=== PATIENT | male | born 1960 | race Caucasian/White ===

== ENCOUNTER → 2018-05-23 | Outpatient (CLI) | payer MEDICARE ==
[~2018-05-23] MED LIST: ALPR-699 PO; ATR80PT PO; CLON-393 PO; DIC75 PO; FAM20 PO; IOPAMIDOL 76% 75 ML INFUS BTL 75 ML ONE; METO50TA PO; NITR0.3T6 SL; NO ROUTINE MEDS; NS(*) 0.9% 50 ML BAG 50 ML ONE; PRAS5TAB3 PO
--- NOTE | 2018-05-23 16:32 | RADIOLOGY IMAGING REPORT ---
FACILITY: [facility] - [place] PATIENT NAME: Edison Griggs : 1960 MR: [id number] V: [id number] EXAM DATE: ORDERING PHYSICIAN: ROSAMARIA TO TECHNOLOGIST: [place] [facility] [place] Gr[place] : 1960 Visit/Account:[id number] Date of Sevice: 05/23/2018 CT ANGIOGRAM HEAD W W/O CONTRA, CTA NECK/CAROTIDS W W/O CONTR Provided history: Left-sided arm numbness Additional pertinent history: none TECHNIQUE: A preliminary non-IV enhanced axial series was not obtained through the brain in this case. Overlapping thin spiral sections were obtained during a bolus of IV contrast from the aortic arch thr ough the cranial vertex. Reconstruction of the source data set includes multiplanar 2D in the sagitta l and coronal planes, and 3D coronal thin slab MIP series. [employer] Engineer images have been stored on PACS. Stenosis calculations are performed using the NASCET criteria (the diameter of the stenotic segment d ivided by the diameter of a normal distal segment of internal carotid artery, where suh are paralle l, then subtracted from 1). Contrast: 75 ml Isovue 370 One of the following dose optimization techniques was utilized in the performance of this exam: Autom ated exposure control; adjustment of the mA and/or kV according to the patient's size; or use of an i terative reconstruction technique. Specific details can be referenced in the facility's radiology C T exam operational policy. COMPARISON STUDIES: No relevant priors FINDINGS: Angiographic findings: Aortic arch and great vessels: Minor calcified plaque near the origin of the left subclavian withou t ostial stenosis.. Right CCA / ICA: Mild calcified plaque of the medial wall of the carotid bulb without focal stenosi s. Rest of the ascending segment, petrous segment and siphon are normal. Bifurcation normal.. Left CCA / ICA: There is a linear hypodense filling defect along the posterior wall of the upper co mmon carotid and carotid bulb difficult to explain away as artifact but I think a real finding. This either reflects adherent thrombus or plaque or possibly sequela of an older dissection but does not propagate beyond the bulb-internal ascending segment junction. Rest of the ascending cervical segmen t, petrous segment and siphon are normal. Bifurcation is normal. Vertebro-basilar: Negative. Right vertebral is dominant.. 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 There is mild-moderat e relative narrowing of the left M1 segment and there is decreased opacification of the left M3 and M 4 branches of questionable significance as this would not correlate with the clinical presentation of left-sided numbness. I see no filling defects.. MORELIA circulation: Negative. MCA circulation: Negative. LINEWORKER circulation: Negative. Other: none significant Additional non-angiographic findings: Brain: Volume is normal. No evidence of hemorrhage, though sensitivity is limited without a non-IV e nhanced series.. No masses. No significant white matter disease. No abnormal extra-axial fluid. N o enhancing lesions. Soft tissues of the neck: Negative Osseous structures of the neck: No significant degenerative changes. Upper chest: Negative IMPRESSION: 1. Linear and curvilinear filling defect along the posterior wall of the upper left common carotid a nd carotid bulb. See above comments. This could serve as a source of peripheral embolism though I s ee no thrombi. There is asymmetric decreased density of the left MCA branches may be related to at l east a mild segmental narrowing of the M1 segment. Given the constellation findings, suggest MRI of the brain to further assess. 2. No significant stenotic disease of the carotids or vertebrals. 3. Negative assessment of the brain. No evidence of mass, hemorrhage or ischemia. A non-IV enhance d series is not received. Report Dictated By: Michelet Chow MD at 05/23/2018 3:58 PM Report E-Signed By: Michelet arias MD at 05/23/2018 4:29 PM WSN:[id number]
--- NOTE | 2018-05-23 16:33 | RADIOLOGY IMAGING REPORT ---
FACILITY: [facility] [place] PATIENT NAME: Edison Griggs : 1960 MR: [id number] V: [id number] EXAM DATE: ORDERING PHYSICIAN: ROSAMARIA TO TECHNOLOGIST: Location: [facility] [place] Patient: Edison Griggs : 1960 Visit/Account:[id number] Date of Sevice: 05/23/2018 CT ANGIOGRAM HEAD W W/O CONTRA, CTA NECK/CAROTIDS W W/O CONTR Provided history: Left-sided arm numbness Additional pertinent history: none TECHNIQUE: A preliminary non-IV enhanced axial series was not obtained through the brain in this case. Overlapping thin spiral sections were obtained during a bolus of IV contrast from the aortic arch thr ough the cranial vertex. Reconstruction of the source data set includes multiplanar 2D in the sagitta l and coronal planes, and 3D coronal thin slab MIP series. Operator Automated Process images have been stored on PACS. Stenosis calculations are performed using the NASCET criteria (the diameter of the stenotic segment d ivided by the diameter of a normal distal segment of internal carotid artery, where suh are paralle l, then subtracted from 1). Contrast: 75 ml Isovue 370 One of the following dose optimization techniques was utilized in the performance of this exam: Autom ated exposure control; adjustment of the mA and/or kV according to the patient's size; or use of an i terative reconstruction technique. Specific details can be referenced in the facility's radiology C T exam operational policy. COMPARISON STUDIES: No relevant priors FINDINGS: Angiographic findings: Aortic arch and great vessels: Minor calcified plaque near the origin of the left subclavian withou t ostial stenosis.. Right CCA / ICA: Mild calcified plaque of the medial wall of the carotid bulb without focal stenosi s. Rest of the ascending segment, petrous segment and siphon are normal. Bifurcation normal.. Left CCA / ICA: There is a linear hypodense filling defect along the posterior wall of the upper co mmon carotid and carotid bulb difficult to explain away as artifact but I think a real finding. This either reflects adherent thrombus or plaque or possibly sequela of an older dissection but does not propagate beyond the bulb-internal ascending segment junction. Rest of the ascending cervical segmen t, petrous segment and siphon are normal. Bifurcation is normal. Vertebro-basilar: Negative. Right vertebral is dominant.. 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 There is mild-moderat e relative narrowing of the left M1 segment and there is decreased opacification of the left M3 and M 4 branches of questionable significance as this would not correlate with the clinical presentation of left-sided numbness. I see no filling defects.. MORELIA circulation: Negative. MCA circulation: Negative. LIVESTOCK COUNTER circulation: Negative. Other: none significant Additional non-angiographic findings: Brain: Volume is normal. No evidence of hemorrhage, though sensitivity is limited without a non-IV e nhanced series.. No masses. No significant white matter disease. No abnormal extra-axial fluid. N o enhancing lesions. Soft tissues of the neck: Negative Osseous structures of the neck: No significant degenerative changes. Upper chest: Negative IMPRESSION: 1. Linear and curvilinear filling defect along the posterior wall of the upper left common carotid a nd carotid bulb. See above comments. This could serve as a source of peripheral embolism though I s ee no thrombi. There is asymmetric decreased density of the left MCA branches may be related to at l east a mild segmental narrowing of the M1 segment. Given the constellation findings, suggest MRI of the brain to further assess. 2. No significant stenotic disease of the carotids or vertebrals. 3. Negative assessment of the brain. No evidence of mass, hemorrhage or ischemia. A non-IV enhance d series is not received. Report Dictated By: Michelet Chow MD at 05/23/2018 3:58 PM Report E-Signed By: Michelet arias MD at 05/23/2018 4:29 PM WSN:[id number]
== END ==
LOC: CT 07:43
PROVIDERS: ATTEND Internal Medicine Cardiovascular Disease
DX: R20.0 Anesthesia of skin (principal)
CPT/HCPCS: 70496; 70498; J7050; Q9967

== ENCOUNTER → 2018-06-14 | Outpatient (CLI) | payer MEDICARE ==
[~2018-06-14] MED LIST changes: +GADOBENATE 529MG/1ML 15ML VIAL IVP ONE; -IOPAMIDOL 76% 75 ML INFUS BTL 75 ML ONE; -NS(*) 0.9% 50 ML BAG 50 ML ONE
--- NOTE | 2018-06-14 13:07 | RADIOLOGY IMAGING REPORT ---
FACILITY: [facility] [place] PATIENT NAME: Edison Griggs : 1960 MR: [id number] V: [id number] EXAM DATE: ORDERING PHYSICIAN: MANUEL RICKETTS TECHNOLOGIST[place] [facility] [place] Gr[place] : 1960 Visit/Account:[id number] Date of Sevice: 06/14/2018 EXAMINATION: Pre MRI orbits radiograph, one view. HISTORY: Rule out metal foreign body. FINDINGS: No radiopaque intraorbital foreign bodies are identified. The lateral aspects of the maxillary sinuse s are slightly hazy. The paranasal sinuses are otherwise unremarkable. IMPRESSION: No evidence of radiopaque intraorbital foreign body. Report Dictated By: Andrea Joseph MD at 06/14/2018 1:01 PM Report E-Signed By: Andrea Joseph MD at 06/14/2018 1:02 PM WSN:[id number]
--- NOTE | 2018-06-14 15:10 | RADIOLOGY IMAGING REPORT ---
FACILITY: [facility] PATIENT NAME: Edison Griggs : 1960 MR: [id number] V: [id number] EXAM DATE: ORDERING PHYSICIAN: MANUEL RICKETTS TECHNOLOGIST: Location: [facility] [place] Patient: Edison Griggs : 1960 Visit/Account:[id number] Date of Sevice: 06/14/2018 BRAIN W W/O CONTRAST Provided history: Right facial numbness Additional pertinent history: none TECHNIQUE: Multiplanar multisequence brain MRI was performed without and with intravenous contrast Contrast dose: 15 mL of MultiHance. Additional focused sequences: none COMPARISON STUDIES: CT 05/23/18 FINDINGS: Brain volume: Normal Acute ischemia: None Chronic cortical and ganglionic ischemia: none significant Hemorrhage: None Masses / edema: None White matter lesions : There are several scattered deep and peripheral T2 hyperintense disease, nons pecific. Vessels: Normal Extra-axial: None Calvarium / scalp: Negative Skull base / infratemporal fossa: negative Visualized sinuses / orbits / upper neck: Moderate mucosal thickening bilateral ethmoid and sphenoid air cells. No air-fluid levels. Relatively normal maxillary sinuses. IMPRESSION: 1. Note evidence of hemorrhage, mass or ischemia. 2. Moderate paranasal sinus inflammatory disease. Report Dictated By: Michelet Chow MD at 06/14/2018 3:00 PM Report E-Signed By: Michelet Chow MD at 06/14/2018 3:07 PM WSN:[id number]
--- NOTE | 2018-06-14 18:13 | RADIOLOGY IMAGING REPORT ---
FACILITY: [facility] PATIENT NAME: Edison Griggs : 1960 MR: [id number] V: [id number] EXAM DATE: ORDERING PHYSICIAN: MANUEL RICKETTS TECHNOLOGIST: Location: [facility] Patient: Edison Griggs : 1960 Visit/Account:[id number] Date of Sevice: 06/14/2018 ORBITS FOREIGN BODY 1 VIEW History: Evaluate for radiopaque foreign body. Comparison study: None. Findings: There are no findings of a radiopaque foreign body overlying the right or left orbit. The paranasal sinuses are well aerated and there is no mucosal thickening. IMPRESSION: 1. No findings of a radiopaque foreign body overlying the right or left orbit. Report Dictated By: Tyrel Dudley MD at 06/14/2018 6:09 PM Report E-Signed By: Tyerl Dudley MD at 06/14/2018 6:09 PM WSN:[id number]
== END ==
LOC: MRI 03:49
PROVIDERS: ATTEND Psychiatry & Neurology Neurology
DX: R20.0 Anesthesia of skin (principal); J32.9 Chronic sinusitis, unspecified
CPT/HCPCS: 70200; 70553; A9577; 70030